=== PATIENT | male | born 1950 | race Caucasian/White ===

== ENCOUNTER 2017-05-22 07:39 | Day surgery (SDC) | payer BC, OTHER ==
[~2017-05-22 07:39] MED LIST: Midazolam 1 MG/ML 2 ML SDV ONE; fentaNYL 100 MCG/2 ML SDV ONE
[2017-05-22] MEDS ORDERED: Midazolam 1 MG/ML 2 ML SDV IV ONE ×3 (07:40→08:46)
[2017-05-22] MEDS ORDERED: fentaNYL 100 MCG/2 ML SDV IV ONE ×3 (07:40→08:45)
[2017-05-22] MEDS ORDERED: Dextrose 5%-0.45% NaCl 1,000 ML IV SCH (08:15)
--- NOTE | 2017-05-22 09:45 | OR ---
DATE: 05/22/2017 PROCEDURES: Esophagogastroduodenoscopy and multiple pinch biopsies. INSTRUMENT USED: GIF-H180 Olympus video panendoscope. PREMEDICATIONS: No oral topical anesthesia used. Fentanyl 100 mcg intravenous, Versed 2 mg intravenous. The procedure was done under pulse oximetry, BP recording, and court monitor. INDICATION: The patient with persistent heartburn, regurgitation, dysphagia unexplained, and not responsive to medical measures, off PPI. DESCRIPTION OF PROCEDURE: Esophagogastroduodenoscopy is performed for detection of any active erosive lesions. Tafoya's esophagus and/or malignancy also under consideration. H. pylori status to be determined, esophageal dilatations if indicated, endoscopic hemostasis therapy if needed. The scope was passed with ease. Adequate visualization of the esophagus was made from proximal to distal areas. No upper esophageal lesions identified. No distal esophageal stricture. No uphill or downhill esophageal varices. No Juli-Curtis tear. Z-line was seen at around 40 cm distal to the oral verge, configuration consistent with grade 1 by ZAP classification. No esophageal polyp or tumor mass identified. No proximal gastric varices noted. Gastric fundus examination by retroflexion showed no polypoid lesions. No gastric ulcer, malignant mass, or vascular ectasia identified. Duodenal bulb showed no ulcer. Visualized second part of the duodenum was unremarkable. Multiple pinch biopsies were taken from the gastric antrum and proximal body and sent for PyloriTek test for H. pylori, and if negative in an hour, the tissue is to be sent for histopathology. No bleeding was noted from any of the visualized areas at the completion of examination. IMPRESSION: Normal study. The patient tolerated the procedure well. [facility] /[id number]
[2017-05-22 10:46] VITALS: BP 110/69
== END 2017-05-22 10:55 | disposition home or self-care (01) ==
LOC: DL.ENDO 07:39
PROVIDERS: ATTEND Internal Medicine Gastroenterology
DX: R12 Heartburn (principal); R13.10 Dysphagia, unspecified; R11.10 Vomiting, unspecified; E66.9 Obesity, unspecified; K21.9 Gastro-esophageal reflux disease without esophagitis; F41.1 Generalized anxiety disorder
CPT/HCPCS: 87077; J2250; J3010; J7042

== ENCOUNTER 2017-06-12 06:13 | Day surgery (SDC) | payer OTHER ==
[~2017-06-12 06:13] MED LIST changes: +Dextrose 5%-0.45% NaCl 1,000 ML IV SCH; +Sodium Chloride 0.9% 10 ML Syringe FLUSH PRN
[2017-06-12] MEDS ORDERED: Midazolam 1 MG/ML 2 ML SDV IV ONE ×6 (06:14→07:18)
[2017-06-12] MEDS ORDERED: fentaNYL 100 MCG/2 ML SDV IV ONE ×3 (06:14→07:12)
--- NOTE | 2017-06-12 08:12 | OR ---
DATE: 06/12/2017 PROCEDURE PERFORMED: Total colonoscopy. INSTRUMENT USED: CF-H180AL Olympus videocolonoscope. PREMEDICATIONS: Fentanyl 100 mcg intravenous and Versed 3.5 mg intravenous. Nasal O2 cannula. The procedure was done under pulse oximetry, BP recording, and deckhand. INDICATION: Screening colonoscopic examination is done for detection of any polypoid lesions and removal, endoscopic hemostasis therapy if needed. DESCRIPTION OF PROCEDURE: Initial rectal exam was unremarkable. Rigid anoscopy was normal. The colonoscope was passed with ease. Few scattered diverticula were noted in the distal left colon along with deformity. The scope was passed with ease up to the ileocecal area, photographs were taken of the normal- appearing cecum identified by the landmarks of appendiceal orifice and double- bulged ileocecal folds. The bowel preparation was found to be adequate. No bleeding was noted from any of the visualized areas at the commencement of the examination. No stricture. No vascular ectasia. No large isolated ulcerations seen. No evidence of diffuse inflammatory bowel disease in the form of friability, contact bleeding, or ulcerations. No polyp or tumor mass identified. Probing the proximal sides of folds and flexures, using adequate distention and clearing of the stool material, withdrawal of the scope was made, cecum to rectum time over 6 minutes. No bleeding was noted from any of the visualized areas at the completion of examination. IMPRESSION: Diverticulosis. The patient tolerated the procedure well. [facility] /[id number]
[2017-06-12 09:27] VITALS: BP 110/68
== END 2017-06-12 09:36 | disposition home or self-care (01) ==
LOC: DL.ENDO 06:13
PROVIDERS: ATTEND Internal Medicine Gastroenterology
DX: Z12.11 Encounter for screening for malignant neoplasm of colon (principal); K57.30 Diverticulosis of large intestine without perforation or abscess without bleeding; E66.09 Other obesity due to excess calories; K21.9 Gastro-esophageal reflux disease without esophagitis; N40.1 Benign prostatic hyperplasia with lower urinary tract symptoms; R35.0 Frequency of micturition
CPT/HCPCS: 45378; J2250; J3010; J7042

== ENCOUNTER 2022-08-01 05:25 | Day surgery (SDC) | payer MEDICARE, BC ==
[~2022-08-01 05:25] MED LIST changes: -Midazolam 1 MG/ML 2 ML SDV ONE; +Sodium Chloride 0.9% 10 ML Syringe FLUSH SCH; -fentaNYL 100 MCG/2 ML SDV ONE
[2022-08-01] MEDS ORDERED: Dextrose 5%-0.45% NaCl 1,000 ML IV SCH (06:00)
[2022-08-01] MEDS ORDERED: Midazolam 1 MG/ML 2 ML SDV ONE (06:18)
[2022-08-01] MEDS ORDERED: fentaNYL 100 MCG/2 ML SDV ONE (06:18)
[2022-08-01] MEDS ORDERED: Midazolam 1 MG/ML 2 ML SDV IV ONE ×2 (06:32→06:33)
[2022-08-01] MEDS ORDERED: fentaNYL 100 MCG/2 ML SDV IV ONE ×2 (06:32)
[2022-08-01 07:41] VITALS: BP 114/68; PULSE 55
== END 2022-08-01 07:50 | disposition home or self-care (01) ==
LOC: DL.ENDO 05:25
PROVIDERS: ATTEND Internal Medicine Gastroenterology
DX: K21.00 Gastro-esophageal reflux disease with esophagitis, without bleeding (principal); E66.09 Other obesity due to excess calories; F41.1 Generalized anxiety disorder; Z91.048 Other nonmedicinal substance allergy status; Z98.890 Other specified postprocedural states; Z68.29 Body mass index [BMI] 29.0-29.9, adult
CPT/HCPCS: 87077; J2250; J3010; J7042